=== PATIENT | female | born 1965 | race Caucasian/White ===

== ENCOUNTER 2024-01-04 07:07 | Day surgery (SDC) | payer OTHER ==
[~2024-01-04] VITALS: Ht 157.5 cm; Wt 97.5 kg
[2024-01-04] MEDS: MEPERIDINE 100 MG INJ. 100 MG/ML VIAL ONE (11:00)
[2024-01-04] MEDS: MIDAZOLAM HCL 5 MG/5 ML VIAL ONE (11:00)
[2024-01-04 14:26] VITALS: O2SAT 97
[2024-01-04 14:51] VITALS: BP_SYST 110; PULSE 79; RESP 11
== END 2024-01-04 12:53 | disposition home or self-care (01) ==
LOC: SDS 07:07 → SMU 07:08 → SDS 12:53
PROVIDERS: ATTEND Internal Medicine Gastroenterology
DX: R10.30 Lower abdominal pain, unspecified (principal); K29.50 Unspecified chronic gastritis without bleeding; R10.13 Epigastric pain; K57.30 Diverticulosis of large intestine without perforation or abscess without bleeding; K64.8 Other hemorrhoids; K44.9 Diaphragmatic hernia without obstruction or gangrene; I10 Essential (primary) hypertension; E11.9 Type 2 diabetes mellitus without complications; E78.5 Hyperlipidemia, unspecified; Z90.710 Acquired absence of both cervix and uterus; Z79.899 Other long term (current) drug therapy; Z87.891 Personal history of nicotine dependence
CPT/HCPCS: 87081; 36415; 45378; 43239; 82948; 88305; 88312; 88313; 99152; 99153; G0378; J2250; J2175